=== PATIENT | male | born 1985 | race Caucasian/White ===

== ENCOUNTER 2016-10-26 08:41 | Emergency (ER) | payer MEDICARE, MEDICAID ==
[2016-10-26 09:03] VITALS: TEMP 97.5
[2016-10-26] MEDS ORDERED: ONDANSETRON HCL 4 MG/2 ML SOL IV ONE (09:29)
[2016-10-26] MEDS ORDERED: SODIUM CHLORIDE 0.9% 1000ML 1,000 ML IV SCH (09:30)
[2016-10-26] MEDS ORDERED: LIDOCAINE HCL 2% (VISCOUS) 20 ML SOL PO ONE (09:31)
[2016-10-26] MEDS ORDERED: ALUMINUM/MAGNESIUM 30 ML SUS PO ONE (09:31)
[2016-10-26] MEDS ORDERED: SODIUM CHLORIDE 0.9% FLUSH 10 ML SOL IV PRN (09:32)
[2016-10-26] MEDS ORDERED: ALUMINUM/MAGNESIUM 30 ML SUS ONE (09:34)
[2016-10-26] MEDS ORDERED: LIDOCAINE HCL 2% (VISCOUS) 20 ML SOL ONE (09:34)
[2016-10-26] MEDS ORDERED: ONDANSETRON HCL 4 MG/2 ML SOL ONE (09:34)
[2016-10-26 09:48] LABS: BASOPHILS % (AUTO) 1 % (0-3); EOSINOPHILS % (AUTO) 5 % (0-9); HEMATOCRIT 49 % (39-53); MEAN CORPUSCULAR HGB CONC 33.5 gm/dl (32.0-36.0); MEAN CORPUSCULAR VOLUME 98 fL (80-100); NEUTROPHILS % (AUTO) 65.3 % (37-80)
[2016-10-26 10:02] LABS: ALBUMIN 3.8 gm/dl (3.4-5.0); CALCIUM 8.5 mg/dl (8.5-10.1); POTASSIUM 3.9 mMol/L (3.5-5.1)
[2016-10-26 11:43] LABS: APPEARANCE,URINE Clear; BILIRUBIN,URINE NEGATIVE (NEGATIVE); COLOR,URINE Yellow; GLUCOSE, URINE (UA) NEGATIVE (NEGATIVE); KETONES,URINE TRACE (NEGATIVE); LEUKOCYTE ESTERASE ,URINE NEGATIVE (NEGATIVE); NITRATE,URINE NEGATIVE (NEGATIVE); OCCULT BLOOD,URINE NEGATIVE (NEG-TRACE); PH,URINE 7.5
[2016-10-26 11:45] LABS: AMPHETAMINES NEGATIVE (NEGATIVE); METHADONE NEGATIVE (NEGATIVE); METHAMPHETAMINES NEGATIVE (NEGATIVE); OPIATES(OP13) NEGATIVE (NEGATIVE); OXYCODONE(OXY) NEGATIVE (NEGATIVE); PROPOXYPHENE(PPX) NEGATIVE (NEGATIVE); TRICYCLIC ANTIDEPRESSANTS NEGATIVE (NEGATIVE)
[2016-10-26 11:52] LABS: RBC,URINE NEG (0-3AV/HPF)
[2016-10-26 11:53] LABS: WBC,URINE 0-1 (0-5AV/HPF)
[2016-10-26 12:03] VITALS: BP 121/76; PULSE 90; RESP 18; O2SAT 99
== END 2016-10-26 12:02 | disposition home or self-care (01) | DRG 392 ==
LOC: ED 08:41
DX: K29.00 Acute gastritis without bleeding (principal)
CPT/HCPCS: 80053; 80305; 80307; 81001; 82150; 85025; 96365; 96374; 99284; 99285; J2405

== ENCOUNTER 2016-10-31 07:45 | Day surgery (SDC) | payer MEDICARE, MEDICAID ==
[2016-10-31] MEDS ORDERED: PROPOFOL 500 MG/50 ML EMU IV ONE (08:29)
[2016-10-31] MEDS ORDERED: LIDOCAINE HCL 1% MPF SOL ONE (08:29)
[2016-10-31 10:05] VITALS: BP 109/71; PULSE 85; RESP 18; TEMP 97.4; O2SAT 98
== END 2016-10-31 10:50 | disposition home or self-care (01) | DRG 392 ==
LOC: SURG 07:45
PROVIDERS: ATTEND Surgery
DX: R10.11 Right upper quadrant pain (principal); K21.0 Gastro-esophageal reflux disease with esophagitis; R11.2 Nausea with vomiting, unspecified
CPT/HCPCS: J2001; J2704

== ENCOUNTER 2018-04-01 17:47 | Emergency (ER) | payer MEDICARE, OTHER ==
[2018-04-01 17:47] VITALS: O2SAT 97
[2018-04-01 18:08] VITALS: BP 111/72; PULSE 89; RESP 16; TEMP 98
== END 2018-04-01 19:43 | disposition home or self-care (01) | DRG 563 ==
LOC: ED 17:47
DX: S93.492A Sprain of other ligament of left ankle, initial encounter (principal)
CPT/HCPCS: 73610; 99282

== ENCOUNTER 2018-07-19 18:44 | Emergency (ER) | payer MEDICARE, OTHER ==
[2018-07-19 19:22] VITALS: BP 113/76; PULSE 108; RESP 20; TEMP 97.4; O2SAT 96
== END 2018-07-19 21:02 | disposition home or self-care (01) | DRG 153 ==
LOC: ED 18:44
DX: J02.9 Acute pharyngitis, unspecified (principal)
CPT/HCPCS: 87430; 99282

== ENCOUNTER 2018-09-14 22:36 | Emergency (ER) | payer MEDICARE, OTHER ==
[2018-09-14 22:46] VITALS: RESP 18; TEMP 98
[2018-09-15 00:03] LABS: APPEARANCE,URINE Clear; BILIRUBIN,URINE NEGATIVE (NEGATIVE); COLOR,URINE Yellow; GLUCOSE, URINE (UA) NEGATIVE (NEGATIVE); KETONES,URINE NEGATIVE (NEGATIVE); LEUKOCYTE ESTERASE ,URINE NEGATIVE (NEGATIVE); NITRATE,URINE NEGATIVE (NEGATIVE); OCCULT BLOOD,URINE NEGATIVE (NEG-TRACE); PH,URINE 5.5; UROBILINOGEN,URINE 0.2 (0.2-1.0 EU)
[2018-09-15 00:08] LABS: CALCIUM 8.5 mg/dl (8.5-10.1); CARBON DIOXIDE 31.8 mEq/L (21-32); CREATININE 1.06 mg/dl (0.80-1.30); POTASSIUM 3.7 mMol/L (3.5-5.1)
[2018-09-15 00:23] LABS: BACTERIA TRACE (< 1+); CRYSTALS NEGATIVE (0-3 AVE/HPF); EPITHELIAL CELLS 0-3 (SQUAMOUS); RBC,URINE 0-1 (0-3AV/HPF); WBC,URINE 0-1 (0-5AV/HPF)
[2018-09-15 00:24] LABS: AMPHETAMINES NEGATIVE (NEGATIVE); BARBITUATES NEGATIVE (NEGATIVE); BENZODIAZEPINES NEGATIVE (NEGATIVE); CANNABINOL(THC) NEGATIVE (NEGATIVE); COCAINE(COC) NEGATIVE (NEGATIVE); METHADONE NEGATIVE (NEGATIVE); METHAMPHETAMINES NEGATIVE (NEGATIVE); OPIATES(OPI) NEGATIVE (NEGATIVE); OXYCODONE(OXY) NEGATIVE (NEGATIVE); PROPOXYPHENE(PPX) NEGATIVE (NEGATIVE); TRICYCLIC ANTIDEPRESSANTS NEGATIVE (NEGATIVE)
[2018-09-15 00:28] VITALS: BP 149/81; PULSE 72; O2SAT 89
== END 2018-09-15 00:35 | disposition home or self-care (01) | DRG 999 ==
LOC: ED 22:36
DX: Y04.0XXA Assault by unarmed brawl or fight, initial encounter (principal); S30.811A Abrasion of abdominal wall, initial encounter
CPT/HCPCS: 36415; 80048; 80305; 81001; 99282